=== PATIENT | female | born 1975 | race Caucasian/White ===

== ENCOUNTER 2018-12-06 10:55 | Emergency (ER) | payer OTHER ==
[2018-12-06 11:03] VITALS: BP 150/80
--- NOTE | 2018-12-06 11:49 | ED Physician Documentation ---
History of Present Illness - Stated complaint Stated Complaint: RT KNEE INJURY - Chief complaint Chief Complaint: Ext Problem - Additonal information Additional information: This is a 43-year-old female who presents with worsening right knee pain. Patient is a runner, she states that several months ago she developed some pain in her right knee. She works at a physical therapy office, and after examining her her colleagues found that she had some clicking and they thought that she had a meniscus injury. She has been doing some physical therapy and overall the knee was feeling better until recently when she had a twisting event which cause worsening pain in her knee. Last night she also fell on the motion of falling and flexing her knee caused severe pain. She is having increasing swelling, 10 out of 10 pain with movement of the knee, and difficulty bearing weight on it since yesterday. She is using crutches to ambulate. She denies any fever or chills redness around the knee. She has an MRI scheduled for next week Saturday. She is been taking ibuprofen for discomfort which has been mildly helpful. Review of Systems Constitutional: denies: Fever Cardiac: denies: Chest pain / pressure Skin: denies: Rash Musculoskeletal: reports: Joint pain Neurologic: denies: Head injury Immunocompromised: denies: Immunocompromised PD PAST MEDICAL HISTORY - Past Medical History Past Medical History: Yes Endocrine/Autoimmune: HyPOthyroidism - Past Surgical History Past Surgical History: Yes /[employer]: Other - Present Medications Home Medications: Ambulatory Orders Medication Instructions Recorded Confirmed Ibuprofen [Motrin] 600 mg PO 12/06/18 Ibuprofen [Motrin] 800 mg PO Q8H PRN #30 tablet 12/06/18 Levothyroxine Sodium [Synthroid] 100 mcg PO 12/06/18 RX: Acetaminophen 650 mg PO Q6HR #30 tablet 12/06/18 RX: Metoprolol Tartrate 50 mg 12/06/18 - Allergies Allergies/Adverse Reactions: Allergies Allergy/AdvReac Type Severity Reaction Status Date / Time No Known Drug Allergies Allergy Verified 12/06/18 11:04 - Social History Does the pt smoke?: No Smoking Status: Never smoker Does the pt drink ETOH?: No Does the pt have substance abuse?: No - Immunizations Immunizations are current?: Yes - POLST Patient has POLST: No PD ED PE NORMAL - Vitals Vital signs reviewed: Yes - General General: Alert and oriented X 3 - Cardiac Cardiac: RRR, No murmur - Respiratory Respiratory: Clear bilaterally - Abdomen Abdomen: Non distended - Derm Derm: Warm and dry - Neuro Neuro: Alert and oriented X 3 - Psych Psych: Normal mood, Normal affect - Free text exam Free text exam: MSK: Right knee is edematous, there is tenderness along joint lines. Patient does not allow me to flex or extend the knee To assess for locking. There is no patellar tenderness, there is no laxity with anterior posterior drawer test. Distal pulses, motor function, and sensation intact Results - Vitals Vitals: Vital Signs - 24 hr 12/06/18 10:59 Temperature 37.1 C Heart Rate 84 Respiratory 16 Rate Blood Pressure 150/80 H O2 Saturation 100 Oxygen O2 Source Room air - Rads (name of study) knee XR Radiology: Final report received PD MEDICAL DECISION MAKING - ED course Complexity details: considered differential ED course: Patient presents with worsening knee pain that was exacerbated by movement. The description of her pain, location in the knee joint, and association with locking and catching makes meniscus injury highly likely. No signs of infection. XR was obtained showing no acute osseous abnormality. She was given 5mg oxycodone to help facilitate XR. A knee immobilizer was placed. I discussed that she likely does have a meniscus injury, I recommended avoidance of activity that worsens her pain, and gentle ROM exercises until she obtains her MRI. RICE therapy discussed. Return precautions also discussed and patient was discharged home. She has crutches. Departure - Departure Disposition: 01 Home, Self Care Clinical Impression: Knee pain Qualifiers: Chronicity: acute Laterality: right Qualified Code(s): M25.561 - Pain in right knee Condition: Good Assessment: You likely have a meniscus injury. Please wear your knee immobilizer, and avoid activity that worsens her pain. You may do gentle small range of motion exercises until you complete your MRI. You can take ibuprofen and Tylenol for pain, please ice her knee at least 4 times daily. Instructions: ED Meniscal Injury Knee Poss Follow-Up: YAMILEX REGAN [Primary Care Provider] - Prescriptions: RX: Acetaminophen 650 mg PO Q6HR #30 tablet Ibuprofen [Motrin] 800 mg PO Q8H PRN #30 tablet PRN Reason: PAIN &/OR FEVER Forms: Activity restrictions Discharge Date/Time: 12/06/18 14:56
[2018-12-06] MEDS ORDERED: oxyCODONE 5 MG TABLET PO STA (12:29)
[2018-12-06] MEDS ORDERED: ONDANSETRON ODT 4 MG TABLET TL STA (12:30)
--- NOTE | 2018-12-06 13:47 | XRAY Report ---
Reason: right knee pain, increased after fall Procedure Date: 12/06/2018 Accession Number: [id number] / [id number] Procedure: XR - Knee 3 View RT CPT Code: FULL RESULT: EXAM: RIGHT KNEE RADIOGRAPHY EXAM DATE: 12/06/2018 01:33 PM. CLINICAL HISTORY: Right knee pain, increased after fall. COMPARISON: None available. TECHNIQUE: 3 views. FINDINGS: Bones: No acute fracture or dislocation. Joints: Trace joint effusion. Joint spaces are maintained. Soft Tissues: The quadriceps tendon has a thickened appearance. No radiopaque foreign body. IMPRESSION: No acute fracture or dislocation of the right knee. Trace right knee joint effusion. Thickened appearance of the quadriceps tendon. Recommend correlation for evidence of quadriceps tendon tear or tendinopathy. RADIA
== END 2018-12-06 14:56 | disposition home or self-care (01) ==
LOC: ED 10:55
DX: M25.561 Pain in right knee (principal); M25.461 Effusion, right knee; X50.1XXA Overexertion from prolonged static or awkward postures, initial encounter
CPT/HCPCS: 73562; 99283; 99284; A9270; Q0162

== ENCOUNTER 2018-12-12 14:21 | Outpatient (CLI) | payer OTHER ==
[2018-12-12] MEDS ORDERED: IOTHALAMATE MEGLUMINE 50 ML VIAL ONE (14:53)
[2018-12-12] MEDS ORDERED: BUFFERED LIDOCAINE 10 ML SYRINGE ONE (14:53)
[2018-12-12] MEDS ORDERED: GADOPENTETATE DIMEGLUMINE 5 ML VIAL IVP ONE ×3 (14:53→16:06)
[2018-12-12] MEDS ORDERED: BUFFERED LIDOCAINE 10 ML SYRINGE IU ONE (17:01)
[2018-12-12] MEDS ORDERED: IOTHALAMATE MEGLUMINE 50 ML VIAL IVP ONE ×2 (17:01)
--- NOTE | 2018-12-13 09:19 | MRI Report ---
Reason: PAIN IN UNSPECIFIED KNEE Procedure Date: 12/12/2018 Accession Number: [id number] / [id number] Procedure: MRI - Arthrogram Knee RT CPT Code: FULL RESULT: EXAM: RIGHT KNEE MRI ARTHROGRAM WITH CONTRAST EXAM DATE: 12/12/2018 04:27 PM. CLINICAL HISTORY: Pain in unspecified knee. COMPARISON: KNEE 3 VIEW RT 12/06/2018 1:21 PM. TECHNIQUE: Multiplanar, multisequence T1-weighted and fluid-sensitive sequences of the knee after an arthrographic injection of dilute gadolinium, dictated under a separate exam. Other: None. FINDINGS: Bones: No fractures or subluxations. No marrow edema. No bone lesions. Articular Cartilage: There is grade II chondromalacia of the lateral patella facet. There is hyaline cartilage in the medial and lateral compartments. Medial Meniscus: There is an incomplete radial tear of the posterior attachment of the medial meniscus with mild extrusion. Lateral Meniscus: The lateral meniscus is intact. Cruciate Ligaments: The anterior and posterior cruciate ligaments are intact. Collateral Ligaments: The medial collateral and lateral collateral ligamentous structures are intact. Tendons: The quadriceps, patellar, semimembranosus, and popliteus tendons are unremarkable. Musculature: No edema or fatty atrophy. Other: No popliteal cyst. No loose bodies. The medial and lateral retinacula are intact. The subcutaneous tissues and fat pads are unremarkable. IMPRESSION: 1. Incomplete radial tear of the posterior root attachment of the medial meniscus with extrusion. 2. 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 The medial and lateral compartment cartilage appear normal. RADIA
--- NOTE | 2018-12-15 08:39 | XRAY Report ---
Reason: PAIN IN UNSPECIFIED KNEE Procedure Date: 12/12/2018 Accession Number: [id number] / [id number] Procedure: FL - Arthrogram Needle Placement CPT Code: FULL RESULT: EXAM: RIGHT KNEE ARTHROGRAPHIC INJECTION WITH FLUOROSCOPIC GUIDANCE EXAM DATE: 12/12/2018 03:00 PM. CLINICAL HISTORY: Pain in right knee after injury. COMPARISON: ARTHROGRAM KNEE RT 12/12/2018 3:49 PM. TECHNIQUE: The risks, benefits, and alternatives of the procedure were discussed with the patient. All questions were answered. Written and verbal consent were obtained. The knee joint was marked under fluoroscopy and prepped and draped in a sterile manner. Local anesthesia was performed with 1% lidocaine. A 22-gauge needle was then inserted into the knee joint. 20 mL of a solution containing 50% iodinated contrast and a 1:200 dilution of gadolinium contrast in sterile saline was then injected. The needle was removed without immediate complication. Other: None. Fluoroscopy Time: 0.3 minutes. Number of Images: 16. FINDINGS: Bones and joints: No fracture or subluxation. Injection: Fluoroscopic images demonstrate needle placement and contrast in the knee joint. IMPRESSION: Successful fluoroscopically guided arthrographic injection of the knee. RADIA
== END 2018-12-12 14:22 | disposition home or self-care (01) ==
LOC: DI 14:21
PROVIDERS: ATTEND Family Medicine
DX: S83.241A Other tear of medial meniscus, current injury, right knee, initial encounter (principal); M22.41 Chondromalacia patellae, right knee
CPT/HCPCS: 27369; 73722; 77002; Q9961